=== PATIENT | female | born 1935 | race Caucasian/White ===

== ENCOUNTER → 2018-01-06 12:21 | Outpatient (CLI) | payer MEDICARE, SELFPAY ==
--- NOTE | 2018-01-06 12:43 | EKG12_ITS ---
Test Reason : IRREG HB Blood Pressure : / mmHG Vent. Rate : 070 BPM Atrial Rate : 070 BPM P-R Int : 144 ms QRS Dur : 086 ms QT Int : 378 ms P-R-T Axes : 049 -33 044 degrees QTc Int : 408 ms Normal sinus rhythm Left axis deviation Abnormal ECG Confirmed by QUIN CHERRY, REGINA ([id number]), newspaper managing editor LUCIEN KYLE ([id number]) on 01/08/2018 1:43:46 PM Referred By: Jensen Bland Confirmed By:REGINA TSAI MD
[2018-01-06 13:31] LABS: ALB/GLOB Ratio 0.9 RATIO (0.9-2.4); AST(SGOT) 23 U/L (15-37); Alanine Aminotransfer ALT/SGPT 25 U/L (13-56); Albumin, Serum 3.7 g/dL (3.2-5.0); Alkaline Phosphatase 52 U/L (45-117); Anion Gap 6 (5-15); BUN 19 mg/dL (7-18); BUN/Creat Ratio 18.6 RATIO (10-20); Calcium,Total 9.5 mg/dL (8.5-10.1); Chloride 104 mmol/L (98-107); Creatinine, Serum 1.02 mg/dL (0.55-1.02); EST Glomerular Filtration Rate 55 mL/min (>60); Est Glom Filt Rate - Afr Amer 67 mL/min (>60); Glucose 83 mg/dL (74-106); Potassium 4.9 mmol/L (3.5-5.1); Protein, Total 7.7 g/dL (6.4-8.2); Sodium Level 140 mmol/L (136-145)
== END ==
PROVIDERS: Family Provider Family Medicine; PCP Family Medicine; Visit Provider Family Medicine
DX: R55 Syncope and collapse (principal)
CPT/HCPCS: 36415; 80053; 93005

== ENCOUNTER → 2018-01-12 10:37 | Outpatient (CLI) | payer MEDICARE, SELFPAY | PROVIDERS: Family Provider Family Medicine; PCP Family Medicine; Visit Provider Family Medicine | DX: I49.9 Cardiac arrhythmia, unspecified (principal); R55 Syncope and collapse | CPT/HCPCS: 93225; 93226 ==

== ENCOUNTER → 2018-02-09 13:35 | Outpatient (CLI) | payer MEDICARE, SELFPAY | PROVIDERS: Family Provider Family Medicine; PCP Family Medicine; Visit Provider Internal Medicine Cardiovascular Disease | DX: I49.9 Cardiac arrhythmia, unspecified (principal); R06.00 Dyspnea, unspecified | CPT/HCPCS: 93306 ==

== ENCOUNTER → 2019-01-05 10:15 | Outpatient (CLI) | payer MEDICARE, SELFPAY ==
[2019-01-05 09:42] VITALS: BMI 32.5
[2019-01-05 13:01] LABS: ALB/GLOB Ratio 0.9 RATIO (0.9-2.4); AST(SGOT) 23 U/L (15-37); Alanine Aminotransfer ALT/SGPT 24 U/L (13-56); Albumin, Serum 3.6 g/dL (3.2-5.0); Alkaline Phosphatase 56 U/L (45-117); Anion Gap 1 (5-15); BUN 21 mg/dL (7-18); BUN/Creat Ratio 19.8 RATIO (10-20); Calcium,Total 9.5 mg/dL (8.5-10.1); Chloride 105 mmol/L (98-107); Cholesterol 213 mg/dL (200); Creatinine, Serum 1.06 mg/dL (0.55-1.02); EST Glomerular Filtration Rate 53 mL/min (>60); Est Glom Filt Rate - Afr Amer 64 mL/min (>60); Globulin 3.8 g/dL (2.2-4.2); Glucose 84 mg/dL (74-106); High Density Lipoprotein 75 mg/dL; Potassium 4.8 mmol/L (3.5-5.1); Protein, Total 7.4 g/dL (6.4-8.2); Sodium Level 137 mmol/L (136-145); Triglycerides 66 mg/dL; Very Low Density Lipoprotein 13 mg/dL (5-40)
== END ==
PROVIDERS: Family Provider Family Medicine; PCP Family Medicine; Visit Provider Family Medicine
DX: E78.5 Hyperlipidemia, unspecified (principal)
CPT/HCPCS: 36415; 80053; 80061

== ENCOUNTER → 2019-01-28 11:05 | Outpatient (CLI) | payer MEDICARE, SELFPAY ==
[2019-01-28 10:39] VITALS: BMI 32.5
== END ==
PROVIDERS: Family Provider Family Medicine; PCP Family Medicine; Visit Provider Nurse Practitioner Family
DX: L02.224 Furuncle of groin (principal)
CPT/HCPCS: 87070; 87075; 87076; 87205

== ENCOUNTER → 2019-07-20 09:55 | Outpatient (CLI) | payer MEDICARE, SELFPAY ==
[2019-07-20 09:43] VITALS: BMI 32.2
[2019-07-20 12:55] LABS: ALB/GLOB Ratio 0.9 RATIO (0.9-2.4); AST(SGOT) 19 U/L (15-37); Alanine Aminotransfer ALT/SGPT 27 U/L (13-56); Albumin, Serum 3.4 g/dL (3.2-5.0); Alkaline Phosphatase 55 U/L (45-117); Anion Gap 3 (5-15); BUN 22 mg/dL (7-18); Calcium,Total 9.6 mg/dL (8.5-10.1); Chloride 106 mmol/L (98-107); Cholesterol 212 mg/dL (200); Creatinine, Serum 1.16 mg/dL (0.55-1.02); EST Glomerular Filtration Rate 48 mL/min (>60); Est Glom Filt Rate - Afr Amer 58 mL/min (>60); Globulin 3.8 g/dL (2.2-4.2); Glucose 95 mg/dL (74-106); High Density Lipoprotein 79 mg/dL; Protein, Total 7.2 g/dL (6.4-8.2); Sodium Level 139 mmol/L (136-145); Triglycerides 113 mg/dL; Very Low Density Lipoprotein 23 mg/dL (5-40)
== END ==
PROVIDERS: PCP Family Medicine; Referring Provider Family Medicine; Visit Provider Family Medicine
DX: E78.5 Hyperlipidemia, unspecified (principal)
CPT/HCPCS: 36415; 80053; 80061

== ENCOUNTER 2019-08-25 12:40 | Emergency (ER) | payer MEDICARE, SELFPAY ==
[2019-08-23 12:25] VITALS: BMI 32.2
[2019-08-25 12:42] VITALS: BP 163/64; PULSE 66; RESP 17; TEMP 36.5; O2SAT 100; BMI 31.1
--- NOTE | 2019-08-25 13:33 | CT_ITS ---
STUDY: CT BRAIN WITHOUT CONTRAST REASON FOR EXAM: Female, 83 years old. Altered mental status RADIATION DOSAGE (If Supplied By Facility): CTDIvol = ( 44.99 ) mGy, DLP = ( 745.49 ) mGycm TECHNIQUE: Transaxial CT imaging of the brain was performed without administration of intravenous contrast material. Individualized dose optimization techniques were used for this CT. COMPARISON: No relevant priors. FINDINGS: Normal soft tissue structures. Normal calvarium. There is moderate cerebral atrophy with widening of the extra-axial spaces and ventricular dilatation. Normal white matter tracts of the cerebral hemispheres. Normal basal ganglia and thalami. Normal brainstem. Normal cerebellum. There is no intracranial hemorrhage. There are no findings of an acute ischemic infarction. Normal visualized paranasal sinuses. CT/Brain/Head without Contrast IMPRESSION: Moderate cerebral atrophy. Electronically Signed: Guillermo Ritchie, at 15:59 EST Tel , Service support ,
--- NOTE | 2019-08-25 13:33 | RAD_ITS ---
STUDY: X-RAY CHEST REASON FOR EXAM: Female, 83 years old. PT PRESENTS WITH ALTERED LOC. HAD A PERIOD OF TIME IN WHICH SHE WOULD NOT TALK. NOW CONFUSED BUT WILL TALK TECHNIQUE: Single AP portable view of the chest. COMPARISON: Comparison is made with prior examination dated January 01, 2015. FINDINGS: EKG electrodes are seen. The lungs are clear and expanded. There is no demonstrated pleural abnormality. Normal size heart. Normal mediastinum and elvira. Normal visualized pulmonary arteries. There is atherosclerotic calcification of the aortic arch with tortuosity. Normal visualized thoracic spine. There is degenerative osteoarthritis of the bilateral shoulders. Prior bilateral rotator cuff surgery. There is no demonstrated abnormality of the visualized soft tissue structures of the upper abdomen. RAD/Chest 1 View (Portable) IMPRESSION: No acute abnormality is present. Electronically Signed: Tacho Florez, at 13:58 EST , Service support ,
--- NOTE | 2019-08-25 13:37 | ED.VISSUMM ---
- ER Visit Summary Date of Service: 08/25/19 Chief Complaint: No status change History of Present Illness: The patient is a [address] of dementia. Since Thursday the patient's had an altered mental status. She is not been ill. There is been no nausea, vomiting or diarrhea. No fever. She was seen at [place] emergency department had a negative work-up at that time. Has a an appointment to see her neurologist and to get an EEG. She is on Keppra and other medications that could induce a seizure but no ones actually witnessed the seizure. She did have a fall the last several days when she went to sit on the couch but she had no head injury and she is on no blood thinners. Physical Examination: Alert female no acute distress vital signs are stable afebrile. Pulse ox 9% on room air. Family is at bedside. H EENT exam atraumatic. Pupils round react light. No facial droop. Normal speech. Neck nontender no lymphadenopathy. Lungs are to auscultation bilaterally. Heart regular rate and rhythm no murmur rate about 65. Abdomen is soft and nontender normal bowel sounds no peritoneal signs. Extremities moves all 4. Nontender. No deformity. Normal soil sampler strength. Normal dorsi plantarflexion. She can lift either arm or either leg. Neurologically she is awake. She is alert. She does not know day month or year but that is her dementia. She has no focal motor deficits. Nontender. Skin unremarkable. No rashes. Test Results: CBC normal white count of 5. Hemoglobin 13 no bands. Chemistries unremarkable. Creatinine of 1 normal gap of 2. UA normal. It was a cath specimen. Keppra level was sent out those results will not be back for days. Chest x-ray shows no acute abnormality read both by the radiologist and myself. CAT scan of brain shows no acute abnormality. Chronic changes. I did review the patient's recent work-up at [facility]. Unremarkable CBC, chemistry chest x-ray, CAT scan and MRI of the brain. Along with an unremarkable echocardiogram. Emergency Department Course and Treatment: Older female with mental status change. History of dementia. Her exam is benign. She has had no recent med changes. We will do a work-up. I am also trying to obtain the work-up from the prior ER visit at the outlying facility. Treatment Plan: Repeat exam patient is doing well at 1655. A long discussion with both the patient her and I believe her daughter. I think this is just progression of her dementia. There is no acute findings. They have an EEG scheduled on Thursday. They will follow-up with that. I will also discuss this with her primary care physician Dr. Lisandro Bland. Disposition: Discharge Impression: Altered mental status resolved History of dementia This note was generated with jellyfish dictation software. It may contain incorrect words, spelling, and punctuation that were not noted in review of the chart prior to signing ED Disposition - Plan for ED Patient: Referrals: Jensen Bland, DO [Primary Care Provider] -
[2019-08-25 14:07] LABS: Absolute Lymphocyte Count 1.91 X10^3/uL (0.83-4.51); Absolute Neutrophil Count 2.9 X10^3/uL (2.0-7.7); Basophil# 0.06 X10^3/uL; Basophil% 1.1 % (0-1); Eosinophils% 1.8 % (0-5); Hematocrit 41.6 % (37-47); Hemoglobin 13.6 g/dL (12.0-15.0); Lymphocyte # 1.91 X10^3/ul (4.0); Mean Corp Hgb Conc 32.7 g/dL (32-36); Mean Corpuscular Hgb 31.2 pg (27.0-32.0); Mean Corpuscular Volume 95.4 fL (81-99); Mean Platelet Vol. 11.5 fl (6.2-12.0); Monocyte% 9.2 % (0-10); NRBC Flagged by Analyzer 0 % (0-5); Neutrophil # 2.87 X10^3/uL (2.7-7.7); Neutrophil % 52.7 % (47-70); Platelet Count 158 K/mm3 (150-450); RBC Distribution Width SD 44.8 fl (35.1-43.9); Red Blood Count 4.36 M/mm3 (4.2-5.4); White Blood Count 5.5 K/mm3 (4.4-11.0)
[2019-08-25 14:19] LABS: Anion Gap 2 (5-15); BUN 26 mg/dL (7-18); BUN/Creat Ratio 23.9 RATIO (10-20); Calcium,Total 9.5 mg/dL (8.5-10.1); Chloride 107 mmol/L (98-107); Creatinine, Serum 1.09 mg/dL (0.55-1.02); EST Glomerular Filtration Rate 51 mL/min (>60); Est Glom Filt Rate - Afr Amer 62 mL/min (>60); Estimated Creatinine Clearance 37.89 ml/min; Glucose 84 mg/dL (74-106); Potassium 4.7 mmol/L (3.5-5.1); Sodium Level 141 mmol/L (136-145)
[2019-08-25 14:20] VITALS: BP 157/81; PULSE 78; RESP 19; O2SAT 99
--- NOTE | 2019-08-25 14:48 | CHAPLAIN ---
Type of Pastoral Visit _x__ Initial Visit ___ Follow-up Visit ___ On-call Visit ___ General Patient Visit ___ Spiritual Assessment ___ Family Conference ___ Bereavement ___ Rapid Response ___ Code Blue ___ Other (describe below) Pastoral Care Referral From ___ Patient _x__ Family ___ Nurse ___ Physician ___ Executive Housekeeper ___ Accounts Specialist ___ Other (describe below) Sacrament/Intervention _x__ Active listening ___ Anointing ___ Advent ___ Bereavement ___ Communion ___ Radha exploration ___ ___ Life review _x__ Prayer ___ Reconciliation ___ Sacrament of Sick _x__ Supportive presence ___ Wedding ___ Other (describe below) Pastoral Comments
[2019-08-25 15:57] LABS: Bacteria 0 SEEN /hpf (None Seen); Mucous, Urine 0 SEEN /hpf (<or=2+); Squamous Epithelial Cells - UA 0 SEEN /hpf (5-10)
[2019-08-25 16:03] LABS: Color, Urine Straw (Yellow); Glucose, Dipstick Normal (Normal); Ketone-Dipstick 5 mg/dl (Negative); Leukocyte Esterase-Dipstick Negative /ul (Negative); Nitrite-Dipstick Negative (Negative); Occult Blood-Urine 25 /ul (Negative); Protein-Dipstick Negative (Negative); Urine Bilirubin Dipstick Negative (Negative); Urine Clarity Clear (Clear); Urine Urobilinogen Normal (Normal)
[2019-08-25 16:28] VITALS: BP 125/48; PULSE 59; RESP 22; O2SAT 99
[2019-08-25 16:28] LABS: Red Blood Cells-Urine 0-5 SEEN /hpf (0-5); Transitional Epithelial - Ur 0-5 SEEN /hpf (0-5)
[2019-08-25 16:29] LABS: Renal Epithelial Cells 0-5 SEEN /hpf (0-5)
[2019-08-25 16:30] LABS: White Blood Cells 0 SEEN /hpf (0-5)
--- NOTE | 2019-08-25 16:58 | ED.DEP ---
ED Disposition - Plan for ED Patient: Disposition: Home or Assisted Living Instructions: DEMENTIA, Any Type Referrals: Jensen Bland, [Primary Care Provider] - As Needed Additional Instructions: Continue her current medications. Follow-up with her primary care physician. Follow-up with your EEG.
[2019-08-25 17:00] VITALS: BP 113/75; PULSE 66; RESP 23; O2SAT 98
== END 2019-08-25 17:08 | disposition home or self-care (01) ==
PROVIDERS: Emergency Provider Emergency Medicine; PCP Family Medicine
DX: F03.90 Unspecified dementia, unspecified severity, without behavioral disturbance, psychotic disturbance, mood disturbance, and anxiety (principal)
CPT/HCPCS: 70450; 71045; 80048; 81001; 85025; 96360; 96361; 99284; J7040; P9612; A4216

== ENCOUNTER → 2019-09-27 15:53 | Outpatient (CLI) | payer MEDICARE, SELFPAY ==
[2019-08-31 13:05] VITALS: BMI 31.1
[2019-09-27 16:38] LABS: AST(SGOT) 20 U/L (15-37); Alanine Aminotransfer ALT/SGPT 24 U/L (13-56); Albumin, Serum 3.6 g/dL (3.2-5.0); Alkaline Phosphatase 63 U/L (45-117); Anion Gap 4 (5-15); BUN 23 mg/dL (7-18); BUN/Creat Ratio 20.9 RATIO (10-20); Calcium,Total 9.5 mg/dL (8.5-10.1); Chloride 106 mmol/L (98-107); EST Glomerular Filtration Rate 51 mL/min (>60); Est Glom Filt Rate - Afr Amer 61 mL/min (>60); Globulin 3.5 g/dL (2.2-4.2); Glucose 111 mg/dL (74-106); Potassium 4.4 mmol/L (3.5-5.1); Protein, Total 7.1 g/dL (6.4-8.2); Sodium Level 138 mmol/L (136-145)
[2019-09-27 16:44] LABS: Hematocrit 40.9 % (37-47); Mean Corp Hgb Conc 34.2 g/dL (32-36); Mean Corpuscular Hgb 32.9 pg (27.0-32.0); Mean Platelet Vol. 11.5 fl (6.2-12.0); Platelet Count 199 K/mm3 (150-450); RBC Distribution Width CV 13.2 % (11.6-14.6); RBC Distribution Width SD 45.3 fl (35.1-43.9); Red Blood Count 4.26 M/mm3 (4.2-5.4); White Blood Count 5.4 K/mm3 (4.4-11.0)
[2019-10-01 14:47] LABS: Trileptal-Oxcarbazepine 18 ug/mL (10-35)
== END ==
PROVIDERS: PCP Family Medicine; Referring Provider Psychiatry & Neurology Neurology; Visit Provider Psychiatry & Neurology Neurology
DX: G40.909 Epilepsy, unspecified, not intractable, without status epilepticus (principal)
CPT/HCPCS: 80053; 82542; 85027